=== PATIENT | male | born 1960 | race Caucasian/White ===

== ENCOUNTER → 2018-09-26 | Outpatient (CLI) | payer OTHER ==
[~2018-09-26] MED LIST: ACYCLOVIR 200200 MG PO; ALLEGRA PO; ALLEGRA180 MG PO; GLUCOSAMINE &1 EACH PO; LISINOPRIL20 MG PO; MOBIC15 MG PO; PREVACID 30MG C30 M1 PO; SPECTRAVITE PO; ZYRTEC10 M2 PO
[2018-09-26 08:53] LABS: POTASSIUM 3.9 mmol/L (3.5-5.1)
== END ==
LOC: M.LAB 04:36
PROVIDERS: Student in an Organized Health Care Education/Training Program
DX: E11.9 Type 2 diabetes mellitus without complications (principal); E87.6 Hypokalemia

== ENCOUNTER 2018-12-19 00:23 | Emergency (ER) | payer OTHER ==
[~2018-12-19] VITALS: Ht 175.3 cm; Wt 90.7 kg
[2018-12-19] MEDS ORDERED: COZAAR 25 MG TA25 M1 PO (00:37)
[2018-12-19] MEDS ORDERED: CHLORTHALIDONE25 MG PO (00:38)
[2018-12-19 02:16] LABS: ABSOLUTE BASOPHILS 0.1 thou/uL (0.0-0.2); ABSOLUTE EOSINOPHILS 0.2 thou/uL (0.0-0.7); ABSOLUTE LYMPHOCYTES 1.3 thou/uL (0.8-5.3); ABSOLUTE MONOCYTES 0.6 thou/uL (0.0-1.2); ABSOLUTE NEUTROPHILS 5.2 thou/uL (1.6-8.1); BASOPHILS 0.8 %; EOSINOPHILS 2.4 %; HEMATOCRIT 41.6 % (42.0-52.0); HEMOGLOBIN 14.4 gm/dL (14.0-18.0); LYMPHOCYTES 17.2 %; MCHC 34.6 g/dL (28.0-37.0); MCV 101.2 fL (80.0-100.0); MONOCYTES 8.7 %; MPV 7.3 fl. (7.2-11.1); NUCLEATED RBCS 0 /100WBC; PLATELET COUNT* 162 thou/uL (150-400); POLYS 70.9 %; RBC 4.11 mil/uL (4.50-6.00); WBC 7.3 thou/uL (4.0-11.0)
[2018-12-19 02:21] LABS: ANION GAP 8 mmol/L (7-16); BUN 18 mg/dL (7-18); CALCIUM 8.8 mg/dL (8.5-10.1); CHLORIDE 106 mmol/L (98-107); CO2 26 mmol/L (21-32); CREATININE 1.4 mg/dL (0.6-1.3); GLUCOSE 108 mg/dL (70-99); POTASSIUM 3.8 mmol/L (3.5-5.1); SODIUM 140 mmol/L (136-145)
[2018-12-19 02:30] LABS: ALBUMIN 3.6 g/dL (3.4-5.0); ALKALINE PHOSPHATASE 56 U/L (46-116); SGOT 33 U/L (15-37); SGPT 37 U/L (30-65); TOTAL BILIRUBIN 0.5 mg/dL (<0.1-1.0); TOTAL PROTEIN 7.1 g/dL (6.4-8.2); TROPONIN-I LEVEL <0.06 ng/mL (<0.06)
[2018-12-19] MEDS ORDERED: CLONIDINE0.1 PO (03:21)
[2018-12-19 03:30] VITALS: BP 158/88
--- NOTE | 2018-12-19 11:22 | EKG ---
[place] [address] ELECTROCARDIOGRAM REPORT Name: JAMAR CHEN [id number] Admission: 12/19/18 Attend Phys: Discharge: 12/19/18 Date of : 62 Report #: [id number] THIS REPORT FOR: //name// [facility] ED Test Date: 2018-12-19 Test Time: 02:18:46 Pat Name: JAMAR OROSCOPATRICIAREENA Department: Room: Gender: M [employer] Operator Insulation: KAMRYN : 1960 Requested By: Lianne Luis Order Number: [id number] MD: Say Jones Measurements Intervals [place] Rate: 69 P: 46 UT: 143 QRS: -3 QRSD: 108 T: 17 QT: 412 QTc: 442 Interpretive Statements Sinus rhythm RSR' in V1 or V2, right VCD or RVH Compared to ECG 05/04/2010 07:43:02 Right ventricular hypertrophy now present RSR' in V1 or V2 now present Electronically Signed On 12-19-2018 11:22:09 CDT by Say Jones [email or web address] <ELECTRONICALLY SIGNED> By: Say Jones MD, [facility] 12/19/18 1122 Say Jones MD, [facility] /EPI
== END 2018-12-19 03:33 | disposition home or self-care (01) ==
LOC: M.ERS 00:23
PROVIDERS: Personal Emergency Response Attendant
DX: I16.0 Hypertensive urgency (principal); I10 Essential (primary) hypertension; K21.9 Gastro-esophageal reflux disease without esophagitis; M19.90 Unspecified osteoarthritis, unspecified site; G47.30 Sleep apnea, unspecified; Z98.890 Other specified postprocedural states; Z88.8 Allergy status to other drugs, medicaments and biological substances